=== PATIENT | male | born 1965 | race Caucasian/White ===

== ENCOUNTER 2020-06-11 11:26 | Inpatient (IN) | payer OTHER ==
[~2020-06-11] VITALS: Ht 190.5 cm; Wt 230.4 kg
[2020-06-11] MEDS ORDERED: VANCOMYCIN 1GM/NS 250 ML 250 ML IV ONE (11:45)
[2020-06-11 12:01] LABS: BASOPHILS % 0.6 % (0.0-1.0); EOSINOPHILS # (AUTO) 0.1 (0.0-0.4); EOSINOPHILS % 1.6 % (0.0-6.0); HEMATOCRIT 37.6 % (38.2-49.6); HEMOGLOBIN 12.1 g/dL (14.0-18.0); LYMPHOCYTES # (AUTO) 0.9 (1.0-3.2); LYMPHOCYTES % 13.5 % (18.0-39.1); MEAN CORPUSCULAR HEMOGLOBIN 31.7 pg (28-32); MEAN CORPUSCULAR HGB CONC 32.2 g/dL (31-35); MEAN CORPUSCULAR VOLUME 98.4 fL (81-99); MONOCYTES # (AUTO) 0.6 (0.2-0.8); MONOCYTES % 8.4 % (4.4-11.3); NEUTROPHILS # (AUTO) 5.2 (2.1-6.9); PLATELET COUNT 267 x10e3/uL (140-360); RED BLOOD COUNT 3.82 x10e6/uL (4.3-5.7); RED CELL DISTRIBUTION WIDTH 13.1 % (11.7-14.4)
[2020-06-11 12:10] LABS: INR 1.01; PROTHROMBIN TIME 13.8 seconds (11.9-14.5)
[2020-06-11 12:11] LABS: PARTIAL THROMBOPLASTIN TIME 32.4 seconds (23.8-35.5)
[2020-06-11 12:19] LABS: ALANINE AMINOTRANSFERASE 79 IU/L (0-55); ALBUMIN 2.1 g/dL (3.5-5.0); ALBUMIN/GLOBULIN RATIO 0.4 (0.8-2.0); ALKALINE PHOSPHATASE 79 IU/L (40-150); ANION GAP 14.3 mmol/L (8-16); BLOOD UREA NITROGEN 16 mg/dL (7-26); BUN/CREATININE RATIO 18 (6-25); CARBON DIOXIDE 22 mmol/L (22-29); CHLORIDE 108 mmol/L (98-107); CREATINE KINASE 42 IU/L (30-200); CREATININE, SERUM 0.89 mg/dL (0.72-1.25); EST GLOMERULAR FILTRATION RATE > 60 ML/MIN (60-); GLUCOSE 150 mg/dL (74-118); POTASSIUM 4.3 mmol/L (3.5-5.1); SODIUM 140 mmol/L (136-145)
[2020-06-11] MEDS ORDERED: SODIUM CHLORIDE 0.9% 1000ML 1,000 ML IV STA (12:32)
[2020-06-11 12:35] LABS: B-TYPE NATRIURETIC PEPTIDE2 54.9 pg/mL (0-100)
[2020-06-11] MEDS ORDERED: ONDANSETRON HCL INJ 2MG/ML 2ML 2 MG/ML VIAL IV PRN (12:45)
[2020-06-11] MEDS: HYDROCODONE/APAP 5MG-325MG TAB PO PRN ×2 (13:40→22:48)
[2020-06-11] MEDS: CEFEPIME 2 GM/NS 0.9% 100 ML 100 ML IV SCH ×2 (13:40→22:49)
[2020-06-11 15:00] VITALS: BP 133/80
[2020-06-11] MEDS ORDERED: FUROSEMIDE INJ 10 MG/ML 4 ML VIAL IV ONE (15:45)
[2020-06-11] MEDS: VANCOMYCIN 1GM/NS 250 ML 250 ML IV SCH (15:51)
[2020-06-11 15:57] VITALS: BP 133/80
[2020-06-11] MEDS: LACTOBACILLUS ACIDOPHILUS CAPSULE PO SCH (16:37)
[2020-06-11 20:00] VITALS: BP 145/72
[2020-06-11 20:36] VITALS: BP 145/72
[2020-06-11] MEDS: ENOXAPARIN SOD INJ 40 MG/0.4 ML SYR SC SCH (22:48)
[2020-06-12] VITALS (8 sets, daily range): BP systolic 105–137; BP diastolic 58–81
[2020-06-12] MEDS: VANCOMYCIN 1GM/NS 250 ML 250 ML IV SCH ×2 (03:09→17:30)
[2020-06-12 05:19] LABS: BASOPHILS % 0.3 % (0.0-1.0); EOSINOPHILS # (AUTO) 0.1 (0.0-0.4); HEMATOCRIT 34.6 % (38.2-49.6); LYMPHOCYTES # (AUTO) 1.1 (1.0-3.2); LYMPHOCYTES % 15.8 % (18.0-39.1); MEAN CORPUSCULAR HEMOGLOBIN 31.2 pg (28-32); MEAN CORPUSCULAR HGB CONC 31.8 g/dL (31-35); MONOCYTES # (AUTO) 0.7 (0.2-0.8); MONOCYTES % 9.7 % (4.4-11.3); NEUTROPHILS % 72.3 % (38.7-80.0); PLATELET COUNT 263 x10e3/uL (140-360); RED BLOOD COUNT 3.53 x10e6/uL (4.3-5.7); RED CELL DISTRIBUTION WIDTH 13.2 % (11.7-14.4)
[2020-06-12 05:36] LABS: CREATINE KINASE 60 IU/L (30-200)
[2020-06-12 05:59] LABS: % IRON SATURATION 15 % (15-50); IRON 37 ug/dL (65-175); TOTAL IRON BINDING CAPACITY 245 ug/dL (261-478); TRANSFERRIN 175 mg/dL (174-364)
[2020-06-12 06:06] LABS: ALANINE AMINOTRANSFERASE 80 IU/L (0-55); ALBUMIN 2.1 g/dL (3.5-5.0); ALBUMIN/GLOBULIN RATIO 0.4 (0.8-2.0); ALKALINE PHOSPHATASE 74 IU/L (40-150); ANION GAP 16.9 mmol/L (8-16); BLOOD UREA NITROGEN 21 mg/dL (7-26); BUN/CREATININE RATIO 20 (6-25); CALCIUM 8.4 mg/dL (8.4-10.2); CARBON DIOXIDE 23 mmol/L (22-29); CHLORIDE 106 mmol/L (98-107); CREATININE, SERUM 1.03 mg/dL (0.72-1.25); EST GLOMERULAR FILTRATION RATE > 60 ML/MIN (60-); GLUCOSE 136 mg/dL (74-118); POTASSIUM 4.9 mmol/L (3.5-5.1); SODIUM 141 mmol/L (136-145)
[2020-06-12] MEDS: LACTOBACILLUS ACIDOPHILUS CAPSULE PO SCH ×2 (09:47→17:30)
[2020-06-12] MEDS: ENOXAPARIN SOD INJ 40 MG/0.4 ML SYR SC SCH ×2 (09:47→20:03)
[2020-06-12] MEDS: HYDROCODONE/APAP 5MG-325MG TAB PO PRN (09:56)
[2020-06-12] MEDS: CEFEPIME 2 GM/NS 0.9% 100 ML 100 ML IV SCH (10:29)
[2020-06-12] MEDS ORDERED: IRON SUCROSE 100 MG in SODIUM CHLORIDE 0.9% 100 ML 100 ML IV ONE (10:30)
[2020-06-12] MEDS: BALSAM PERU/CASTOR OIL 60 GM OINT...G. TP SCH (15:00)
[2020-06-12] MEDS: HYDROCODONE/APAP 10MG-325MG TAB PO PRN (15:34)
[2020-06-12] MEDS: FUROSEMIDE INJ 10 MG/ML 4 ML VIAL IV SCH (16:15)
[2020-06-12] MEDS: DIPHENHYDRAMINE HCL 25 MG CAP PO PRN (20:04)
[2020-06-12] MEDS ORDERED: SODIUM CHLORIDE 0.9% 50ML 50 ML ONE (23:52)
[2020-06-13] VITALS (8 sets, daily range): BP systolic 120–133; BP diastolic 64–81
[2020-06-13] MEDS: VANCOMYCIN 1GM/NS 250 ML 250 ML IV SCH (03:01)
[2020-06-13] MEDS: HYDROCODONE/APAP 10MG-325MG TAB PO PRN ×3 (05:53→12:51)
[2020-06-13] MEDS: LACTOBACILLUS ACIDOPHILUS CAPSULE PO SCH ×2 (08:05→17:36)
[2020-06-13] MEDS: ENOXAPARIN SOD INJ 40 MG/0.4 ML SYR SC SCH ×2 (08:05→20:21)
[2020-06-13] MEDS: FUROSEMIDE INJ 10 MG/ML 4 ML VIAL IV SCH (08:05)
[2020-06-13] MEDS: BALSAM PERU/CASTOR OIL 60 GM OINT...G. TP SCH (08:12)
[2020-06-13] MEDS: CEFEPIME 2 GM/NS 0.9% 100 ML 100 ML IV SCH ×2 (12:39)
[2020-06-13] MEDS ORDERED: ONDANSETRON HCL 4 MG ORAL DISINTEGRATING TAB PO PRN (16:45)
[2020-06-13] MEDS: DAPTOMYCIN IV SCH (17:36)
[2020-06-13] MEDS: SODIUM CHLORIDE 0.9% IV SCH (17:36)
[2020-06-13] MEDS ORDERED: LACTULOSE SYRUP 20 GM/30 ML UDC PO PRN (19:45)
[2020-06-13] MEDS: DIPHENHYDRAMINE HCL 25 MG CAP PO PRN (20:26)
[2020-06-14] VITALS (8 sets, daily range): BP systolic 103–138; BP diastolic 59–67
[2020-06-14 06:26] LABS: BASOPHILS % 0.4 % (0.0-1.0); EOSINOPHILS # (AUTO) 0.1 (0.0-0.4); EOSINOPHILS % 0.9 % (0.0-6.0); HEMATOCRIT 34.9 % (38.2-49.6); HEMOGLOBIN 11.2 g/dL (14.0-18.0); LYMPHOCYTES # (AUTO) 0.9 (1.0-3.2); LYMPHOCYTES % 15.8 % (18.0-39.1); MEAN CORPUSCULAR HEMOGLOBIN 31.6 pg (28-32); MEAN CORPUSCULAR HGB CONC 32.1 g/dL (31-35); MEAN CORPUSCULAR VOLUME 98.6 fL (81-99); MONOCYTES # (AUTO) 0.5 (0.2-0.8); MONOCYTES % 9.1 % (4.4-11.3); NEUTROPHILS # (AUTO) 4.1 (2.1-6.9); NEUTROPHILS % 73.1 % (38.7-80.0); PLATELET COUNT 266 x10e3/uL (140-360); RED BLOOD COUNT 3.54 x10e6/uL (4.3-5.7); RED CELL DISTRIBUTION WIDTH 12.8 % (11.7-14.4)
[2020-06-14 06:51] LABS: ANION GAP 13.1 mmol/L (8-16); BLOOD UREA NITROGEN 22 mg/dL (7-26); BUN/CREATININE RATIO 27 (6-25); CALCIUM 8.4 mg/dL (8.4-10.2); CARBON DIOXIDE 26 mmol/L (22-29); CHLORIDE 102 mmol/L (98-107); CREATININE, SERUM 0.82 mg/dL (0.72-1.25); EST GLOMERULAR FILTRATION RATE > 60 ML/MIN (60-); GLUCOSE 129 mg/dL (74-118); POTASSIUM 4.1 mmol/L (3.5-5.1); SODIUM 137 mmol/L (136-145)
[2020-06-14] MEDS: ENOXAPARIN SOD INJ 40 MG/0.4 ML SYR SC SCH ×2 (08:00→20:03)
[2020-06-14] MEDS: FUROSEMIDE INJ 10 MG/ML 4 ML VIAL IV SCH (08:00)
[2020-06-14] MEDS: LACTOBACILLUS ACIDOPHILUS CAPSULE PO SCH ×2 (08:00→18:30)
[2020-06-14] MEDS: BALSAM PERU/CASTOR OIL 60 GM OINT...G. TP SCH (08:40)
[2020-06-14] MEDS ORDERED: DOCUSATE SODIUM 100 MG CAP PO SCH (09:00)
[2020-06-14] MEDS: HYDROCODONE/APAP 10MG-325MG TAB PO PRN ×3 (09:33→21:53)
[2020-06-14] MEDS: DAPTOMYCIN IV SCH (18:30)
[2020-06-14] MEDS: SODIUM CHLORIDE 0.9% IV SCH (18:30)
[2020-06-15] VITALS (7 sets, daily range): BP systolic 111–156; BP diastolic 58–86
[2020-06-15] MEDS: HYDROCODONE/APAP 10MG-325MG TAB PO PRN ×3 (06:55→20:54)
[2020-06-15] MEDS: FUROSEMIDE INJ 10 MG/ML 4 ML VIAL IV SCH (09:01)
[2020-06-15] MEDS: ENOXAPARIN SOD INJ 40 MG/0.4 ML SYR SC SCH ×2 (09:01→20:46)
[2020-06-15] MEDS: BALSAM PERU/CASTOR OIL 60 GM OINT...G. TP SCH (09:01)
[2020-06-15] MEDS: LACTOBACILLUS ACIDOPHILUS CAPSULE PO SCH ×2 (09:01→17:39)
[2020-06-15] MEDS ORDERED: SODIUM CHLORIDE 0.9% 250ML 250 ML ONE (16:59)
[2020-06-15] MEDS: SODIUM CHLORIDE 0.9% IV SCH (17:39)
[2020-06-15] MEDS: DAPTOMYCIN IV SCH (17:39)
[2020-06-15] MEDS: DIPHENHYDRAMINE HCL 25 MG CAP PO PRN (20:46)
[2020-06-16] VITALS (8 sets, daily range): BP systolic 124–161; BP diastolic 48–71
[2020-06-16 06:03] LABS: ANION GAP 14.9 mmol/L (8-16); BLOOD UREA NITROGEN 17 mg/dL (7-26); BUN/CREATININE RATIO 20 (6-25); CARBON DIOXIDE 27 mmol/L (22-29); CHLORIDE 100 mmol/L (98-107); CREATININE, SERUM 0.84 mg/dL (0.72-1.25); EST GLOMERULAR FILTRATION RATE > 60 ML/MIN (60-); GLUCOSE 115 mg/dL (74-118); MAGNESIUM 2.1 MG/DL (1.3-2.1); POTASSIUM 3.9 mmol/L (3.5-5.1); SODIUM 138 mmol/L (136-145)
[2020-06-16] MEDS: BALSAM PERU/CASTOR OIL 60 GM OINT...G. TP SCH (08:57)
[2020-06-16] MEDS: FUROSEMIDE INJ 10 MG/ML 4 ML VIAL IV SCH ×2 (08:57→17:22)
[2020-06-16] MEDS: ENOXAPARIN SOD INJ 40 MG/0.4 ML SYR SC SCH ×2 (08:57→20:30)
[2020-06-16] MEDS: LACTOBACILLUS ACIDOPHILUS CAPSULE PO SCH ×2 (08:57→17:22)
[2020-06-16] MEDS: DAPTOMYCIN IV SCH (17:22)
[2020-06-16] MEDS: SODIUM CHLORIDE 0.9% IV SCH (17:22)
[2020-06-16] MEDS: HYDROCODONE/APAP 10MG-325MG TAB PO PRN (18:09)
[2020-06-16] MEDS: DIPHENHYDRAMINE HCL 25 MG CAP PO PRN (21:30)
[2020-06-17] VITALS (7 sets, daily range): BP systolic 109–137; BP diastolic 50–88
[2020-06-17 07:32] LABS: ANION GAP 12.8 mmol/L (8-16); BLOOD UREA NITROGEN 16 mg/dL (7-26); BUN/CREATININE RATIO 20 (6-25); CALCIUM 8.1 mg/dL (8.4-10.2); CARBON DIOXIDE 28 mmol/L (22-29); CHLORIDE 99 mmol/L (98-107); CREATININE, SERUM 0.82 mg/dL (0.72-1.25); EST GLOMERULAR FILTRATION RATE > 60 ML/MIN (60-); GLUCOSE 112 mg/dL (74-118); MAGNESIUM 1.9 MG/DL (1.3-2.1); POTASSIUM 3.8 mmol/L (3.5-5.1); SODIUM 136 mmol/L (136-145)
[2020-06-17] MEDS: HYDROCODONE/APAP 10MG-325MG TAB PO PRN ×2 (09:15→18:48)
[2020-06-17] MEDS: LACTOBACILLUS ACIDOPHILUS CAPSULE PO SCH ×2 (09:33→17:57)
[2020-06-17] MEDS: ENOXAPARIN SOD INJ 40 MG/0.4 ML SYR SC SCH ×2 (09:33→21:33)
[2020-06-17] MEDS: FUROSEMIDE INJ 10 MG/ML 4 ML VIAL IV SCH ×2 (09:33→17:57)
[2020-06-17] MEDS: BALSAM PERU/CASTOR OIL 60 GM OINT...G. TP SCH (09:33)
[2020-06-17] MEDS ORDERED: CEFEPIME HCL 2 GM VIAL IV SCH (10:00)
[2020-06-17] MEDS: CEFEPIME 2 GM/NS 0.9% 100 ML 100 ML IV SCH ×2 (11:51→23:13)
[2020-06-17] MEDS: SODIUM CHLORIDE 0.9% IV SCH (17:57)
[2020-06-17] MEDS: DAPTOMYCIN IV SCH (17:57)
[2020-06-18 04:00] VITALS: BP 119/47
[2020-06-18 07:57] VITALS: BP 144/70
[2020-06-18] MEDS: ENOXAPARIN SOD INJ 40 MG/0.4 ML SYR SC SCH ×2 (08:57→20:51)
[2020-06-18] MEDS: LACTOBACILLUS ACIDOPHILUS CAPSULE PO SCH ×2 (08:57→16:42)
[2020-06-18] MEDS: FUROSEMIDE INJ 10 MG/ML 4 ML VIAL IV SCH ×2 (08:57→16:42)
[2020-06-18] MEDS: BALSAM PERU/CASTOR OIL 60 GM OINT...G. TP SCH (09:18)
[2020-06-18 09:46] VITALS: BP 144/70
[2020-06-18 12:00] VITALS: BP 154/71
[2020-06-18] MEDS: CEFEPIME 2 GM/NS 0.9% 100 ML 100 ML IV SCH ×2 (12:00→23:00)
[2020-06-18] MEDS: HYDROCODONE/APAP 10MG-325MG TAB PO PRN ×2 (14:18→20:50)
[2020-06-18 16:00] VITALS: BP 147/74
[2020-06-18] MEDS: DAPTOMYCIN IV SCH (17:29)
[2020-06-18] MEDS: SODIUM CHLORIDE 0.9% IV SCH (17:29)
[2020-06-18 20:00] VITALS: BP 150/71
[2020-06-18] MEDS: DIPHENHYDRAMINE HCL 25 MG CAP PO PRN (21:06)
[2020-06-19] MEDS: CEFEPIME 2 GM/NS 0.9% 100 ML 100 ML IV SCH ×2 (06:00→18:34)
[2020-06-19] MEDS: ALTEPLASE RECOMBINANT 2 MG/2 ML VIAL IV PRN ×2 (07:30→08:01)
[2020-06-19 07:31] LABS: ANION GAP 11.3 mmol/L (8-16); BLOOD UREA NITROGEN 13 mg/dL (7-26); BUN/CREATININE RATIO 15 (6-25); CALCIUM 8.2 mg/dL (8.4-10.2); CARBON DIOXIDE 32 mmol/L (22-29); CHLORIDE 98 mmol/L (98-107); CREATININE, SERUM 0.88 mg/dL (0.72-1.25); EST GLOMERULAR FILTRATION RATE > 60 ML/MIN (60-); GLUCOSE 116 mg/dL (74-118); POTASSIUM 4.3 mmol/L (3.5-5.1); SODIUM 137 mmol/L (136-145)
[2020-06-19 08:00] VITALS: BP 148/67
[2020-06-19 08:20] VITALS: BP 148/67
[2020-06-19] MEDS: FUROSEMIDE INJ 10 MG/ML 4 ML VIAL IV SCH (09:44)
[2020-06-19] MEDS: BALSAM PERU/CASTOR OIL 60 GM OINT...G. TP SCH (09:44)
[2020-06-19] MEDS: HYDROCODONE/APAP 10MG-325MG TAB PO PRN (09:44)
[2020-06-19] MEDS: LACTOBACILLUS ACIDOPHILUS CAPSULE PO SCH ×2 (09:44→16:25)
[2020-06-19] MEDS: ENOXAPARIN SOD INJ 40 MG/0.4 ML SYR SC SCH ×2 (11:36→21:28)
[2020-06-19 12:14] VITALS: BP 127/80
[2020-06-19] MEDS: SODIUM CHLORIDE 0.9% IV SCH (16:25)
[2020-06-19] MEDS: DAPTOMYCIN IV SCH (16:25)
[2020-06-19 16:33] VITALS: BP 162/78
[2020-06-19 20:00] VITALS: BP 162/78
[2020-06-19 20:15] VITALS: BP 138/66
[2020-06-19] MEDS ORDERED: ACETAMINOPHEN 325 MG TAB PO PRN (21:45)
[2020-06-20] MEDS: CEFEPIME 2 GM/NS 0.9% 100 ML 100 ML IV SCH ×2 (06:31→16:55)
[2020-06-20 07:52] VITALS: BP 146/66
[2020-06-20 08:00] VITALS: BP 146/66
[2020-06-20] MEDS: BALSAM PERU/CASTOR OIL 60 GM OINT...G. TP SCH (08:50)
[2020-06-20] MEDS: ENOXAPARIN SOD INJ 40 MG/0.4 ML SYR SC SCH ×2 (08:50→20:55)
[2020-06-20] MEDS: FUROSEMIDE INJ 10 MG/ML 4 ML VIAL IV SCH (08:50)
[2020-06-20] MEDS: LACTOBACILLUS ACIDOPHILUS CAPSULE PO SCH ×2 (08:50→16:17)
[2020-06-20 11:49] VITALS: BP 112/69
[2020-06-20 16:00] VITALS: BP 134/52
[2020-06-20] MEDS: DAPTOMYCIN IV SCH (18:12)
[2020-06-20] MEDS: SODIUM CHLORIDE 0.9% IV SCH (18:12)
[2020-06-20 20:00] VITALS: BP 134/52
[2020-06-20 20:46] VITALS: BP 141/57
[2020-06-20] MEDS: DIPHENHYDRAMINE HCL 25 MG CAP PO PRN (20:56)
[2020-06-21 05:26] VITALS: BP 144/78
[2020-06-21] MEDS: CEFEPIME 2 GM/NS 0.9% 100 ML 100 ML IV SCH ×2 (05:51→15:31)
[2020-06-21 07:57] VITALS: BP 128/76
[2020-06-21 08:15] VITALS: BP 128/76
[2020-06-21] MEDS: BALSAM PERU/CASTOR OIL 60 GM OINT...G. TP SCH (09:58)
[2020-06-21] MEDS: FUROSEMIDE INJ 10 MG/ML 4 ML VIAL IV SCH (09:58)
[2020-06-21] MEDS: LACTOBACILLUS ACIDOPHILUS CAPSULE PO SCH ×2 (09:58→15:31)
[2020-06-21] MEDS: ENOXAPARIN SOD INJ 40 MG/0.4 ML SYR SC SCH (09:58)
[2020-06-21 12:00] VITALS: BP 117/54
[2020-06-21] MEDS ORDERED: LASIX40 MG PO (15:07)
[2020-06-21] MEDS: SODIUM CHLORIDE 0.9% IV SCH (16:30)
[2020-06-21] MEDS: DAPTOMYCIN IV SCH (16:30)
== END 2020-06-21 17:35 | disposition home or self-care (01) | DRG 602 ==
LOC: ER 11:29 → ERHOLD 12:49 → MED/SURG2 13:59
PROVIDERS: ADMIT Internal Medicine; ATTEND Internal Medicine
PROC: 02HV33Z Insertion of Infusion Device into Superior Vena Cava, Percutaneous Approach (ICD-10-PCS; principal; 2020-06-15)
DX: L03.116 Cellulitis of left lower limb (principal); J81.0 Acute pulmonary edema; Z68.44 Body mass index [BMI] 60.0-69.9, adult; D50.9 Iron deficiency anemia, unspecified; Z20.828 Contact with and (suspected) exposure to other viral communicable diseases; E66.01 Morbid (severe) obesity due to excess calories; D63.8 Anemia in other chronic diseases classified elsewhere
CPT/HCPCS: 36415; 36569; 71045; 76882; 80048; 80053; 80202; 82550; 82553; 82948; 83036; 83540; 83605; 83735; 83880; 84466; 84484; 85025; 85610; 85730; 87040; 93005; 93925; 93971; 99251; 99284; J1650; J1756; J1940; J2405; J2997; J3370; J7030; J7050; U0002

== ENCOUNTER → 2020-06-25 | Outpatient (CLI) | payer OTHER ==
[~2020-06-25] MED LIST: LASIX40 MG PO; LIDOCAINE/PRILOCAINE 2.5-2.5% KIT ONE
== END ==
LOC: WCC 13:38
PROVIDERS: ATTEND Internal Medicine Infectious Disease
DX: I87.2 Venous insufficiency (chronic) (peripheral) (principal); L03.116 Cellulitis of left lower limb; J81.0 Acute pulmonary edema; D50.9 Iron deficiency anemia, unspecified; E66.01 Morbid (severe) obesity due to excess calories; Z68.44 Body mass index [BMI] 60.0-69.9, adult

== ENCOUNTER → 2020-07-02 | Outpatient (CLI) | payer OTHER ==
[~2020-07-02] MED LIST changes: -LIDOCAINE/PRILOCAINE 2.5-2.5% KIT ONE
== END ==
LOC: WCC 13:18
PROVIDERS: ATTEND Internal Medicine Infectious Disease
DX: I87.2 Venous insufficiency (chronic) (peripheral) (principal); L03.116 Cellulitis of left lower limb; R60.0 Localized edema; J81.0 Acute pulmonary edema; D50.9 Iron deficiency anemia, unspecified; E66.01 Morbid (severe) obesity due to excess calories; Z68.44 Body mass index [BMI] 60.0-69.9, adult

== ENCOUNTER → 2020-07-09 | Outpatient (CLI) | payer OTHER | LOC: WCC 13:18 | PROVIDERS: ATTEND Internal Medicine Infectious Disease | DX: L03.116 Cellulitis of left lower limb (principal); I87.2 Venous insufficiency (chronic) (peripheral); J81.0 Acute pulmonary edema; D50.9 Iron deficiency anemia, unspecified; E66.01 Morbid (severe) obesity due to excess calories; Z68.44 Body mass index [BMI] 60.0-69.9, adult ==

== ENCOUNTER → 2020-07-16 | Outpatient (CLI) | payer OTHER | LOC: WCC 14:38 | PROVIDERS: ATTEND Internal Medicine Infectious Disease | DX: D50.9 Iron deficiency anemia, unspecified (principal); L03.116 Cellulitis of left lower limb; I87.2 Venous insufficiency (chronic) (peripheral); J81.0 Acute pulmonary edema; E66.01 Morbid (severe) obesity due to excess calories; Z68.44 Body mass index [BMI] 60.0-69.9, adult ==